=== PATIENT | male | born 1965 | race Caucasian/White ===

== ENCOUNTER 2017-12-08 14:00 | Outpatient (RCR) | payer OTHER, MEDICAID, SELFPAY ==
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
--- NOTE | 2017-07-29 15:52 | HP.SP.AD_ITS ---
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 He is not left alone at home at anytime. SCATBI - SCATBI SCATBI Administered: Yes SCATBI: The Scales of Cognitive Ability for Traumatic Brain Injury tests cognitive abilities in five subtests: perception and discrimination, orientation , organization, recall and reasoning. The lower functioning composite score is the sum of the standard scores for perception and discrimination, orientation and organization, and the higher functioning composite is the sum of the standard scores for recall and reasoning. The SCATBI total score is the sum of all five standard scores. The standard score is a mean of 100 with a standard deviation of 15. A score of 85 or better is considered within normal limits. Date: 07/29/17 - Organization Standard Score: 85 - SCATBI Comments Evaluation Peter was able to complete tasks for identifying pictured categories and category members as well as sequence objects by He did not complete word associations ( identify which one does not belong in a group fo 4). He did not sequence words, events per time of year or sequence events through pictures. When asked to give steps to complete a task he listed basic steps but not enough information to complete the task. Futher evaluation is needed for cognitive skills and completion of SCTABI is recommended. Other Impressions - Comments Additional information -: Peter often repeated the same information/statement through the evaluation. 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 He often answered questions in accurately while his provided correct information. ( example - do you do your own medication, he stated yes and his gives him his daily doses of medications. She reported that he does not independently complete medication management. Initation -: Peter rarely initates tasks per his . He does not recognize when he is hungry therefore does not eat routinely if someone does not give him food. He has only one time ( in the past 2 weeks) went and got his own snack after a nap. He will follow directions and is able to complete dressing and bathing tasks but only when told to do so. Plan - Plan Plan: Speech therapy is warranted for signficant cognitive deficits which impacts his overall safety and ability to be left alone. - Recommendations Treatment Warranted: Yes - Frequency Frequency: 2x /Week Duration: 6 Weeks Visits in this POC: 12 - Prognosis Prognosis: Good - Goals that are Established: Determination:: Goals will be added/modified as deemed necessary and appropriate. Therapy will be discontinued when results of re-evaluation indicate therapy is no longer needed or lack of progress has been documented. - Goal #1-5 Goal #1: Completion of SCATBI. Goal #2: Evaluation of safety awareness, problem solving, reasoning, and judgement. Education - Patient has Indicated that the Following Identified Educational Needs: Cognitively Impaired - Patient Instruction Patient Education: Diagnosis, Treatment Plan, Goals, Safety Precautions Person Taught: Family Teaching Method: Discussion Response to teaching: Verbalize understanding
--- NOTE | 2017-08-05 11:02 | HP.PTREVAL_ITS ---
Out of Town Doctor, It has been my pleasure to treat JACOB LAMAS over the last 8 visits for TBI. Please see the progress note below for an update on the physical therapy plan of care! Subjective: rode 2.5 miles on bike at gym yesterday([employer]). Doing a 30 minute circuit at [employer] mostly UE ex. Has [employer] in basement at home. Objective/Function: 130 AROM B shpoulders. Steps up without UE, down with poor confidence and needs rail. FGA 3 poijnts better. Plan Plan: Continue 2x/week for 4 weeks for balance(functional, steps and foam). Do end range shoulder ROM also. Pt to do UE/LE and bike/TM work at [employer] with wifs help. 3x/week. OVERALL IMPROVONG SLWLY AND APPROP TO CONTINUE 2X/ WEEK IN CONJUCTION WITH EX AT GYM WITH HIS . Goals Goal 1:: 130 AROM B shoulders to help reach cabinets better. Goal Time Frame: 4-6 Weeks Goal Progress: Goal Met Goal 2:: FGA to show improved balance and minimize future risk. Goal Time Frame: 4-6 Weeks Goal Progress: Progressing Goal 3:: Up and down steps without railing to get to basement Goal Time Frame: 4-6 Weeks Goal Progress: Progressing Goal 4:: I with approp [employer] workout with help of his . Goal Time Frame: 4-6 Weeks Goal Progress: Goal Met Anticipated Interventions Patient/Client Instruction: Educate patient on: Condition, Plan of Care Comments: HEP progression. For the Purpose of:: To increase ROM, To improve ability of physical actions for home/community/work/leisure Therapeutic Exercise to Include: Strength training, Balance training, Flexibilty training, Gait and locomotor training, Passive ROM, Active ROM For the Purpose of:: To increase ROM, To improve ability of physical actions for home/community/work/leisure, To improve gait and locomotor functions Manual Therapy Techniques to Include: Mobilization Comment: g-h mobs For the Purpose of:: To increase ROM Please do not hesitate to contact me at [phone] by phone or Fax: if you have questions or concerns regarding this new plan of care! Sincerely, Michelet Cristobal, DARELLT, OC
--- NOTE | 2017-08-21 14:43 | HP.PTDCNRP_ITS ---
HP - Discharge Summary (1) - Patient Information JACOB LAMAS was seen in my office for initial evaluation on 07/07/17. The following Plan of Care was established for this patient: Initial Frequency: 2x /Week Initial Duration: 2 Months - Anticipated Interventions Patient/Client Instruction: Educate patient on: Condition, Plan of Care Comments: HEP progression. For the Purpose of:: To increase ROM, To improve ability of physical actions for home/community/work/leisure Therapeutic Exercise to Include: Strength training, Balance training, Flexibilty training, Gait and locomotor training, Passive ROM, Active ROM For the Purpose of:: To increase ROM, To improve ability of physical actions for home/community/work/leisure, To improve gait and locomotor functions Manual Therapy Techniques to Include: Mobilization Comment: g-h mobs For the Purpose of:: To increase ROM This patient was last seen in our office 08/05/17. Pertinent comments regarding their Physical therapy will appear below: Pt seen 8 visits. More visits requested but denied by insurance. Patient to continue via HEP at [employer]. Will discontinue at this time. At this point I will be discontinuing this patient from physical therapy. I would be happy to see this patient again in the future if found appropriate by the physician. Thank you! Michelet Cristobal, DPT, OC
--- NOTE | 2017-10-01 10:56 | OTREVAL_ITS ---
Out of Town Doctor, It has been my pleasure to treat JACOB LAMAS over the last 7 visits for TBI. Please see the progress note below for an update on the occupational therapy plan of care! Subjective: Arrived stating he was exhausted from going to gym. No pain Objective/Function: when working with problem solving tasks as putting a clock together pt did not think the short hand needed to be on the clock-. pt cont. is to be cont. with UB strengthening but cont. to struggle with remembering the ex. pt cont. to demo poor endurance and fatigue with PT and when attending OT services pt struggles with focus. pt would benefit from cont. OT services to cont. to challenge functional strength and endurance and motor planning tasks. Would rec'd cont OT services 1-2xweek for 3-4 weeks Plan Frequency: 2-3x /Week Duration: 6 Weeks Plan: Visual motor activities Goals - Goals Goal:: pt will demo a increase in left gyroscope technician strength to 45# to increase ind with BADLs and IADLs Goal:: pt will demo increase FM coordination/dexterity to type on computer ind. by d/c Goal:: family will report pt is perform laundry tasks at sup. level by d/c. pt will demo the ability to fold towel ind to increase ind with BADls Goal:: Pt will demo the ability to safely problem solve 3 step task with 2 verbal cues by D/C. Anticipated Interventions Anticipated Interventions: Fine Motor Coord/Gilberto, Neuro Reeducation, ADL Training Please do not hesitate to contact me at [phone] by phone or Fax: if you have questions or concerns regarding this new plan of care! Sincerely, Yari Melendez, OTR/L, CHT
--- NOTE | 2017-10-02 11:39 | HP.SP.ADRE ---
Previous/Current Goals - Goals 1-5 Previous Goal #1: Peter will complete problem solving tasks on 4/5 trials. Goal 1 Status: Previously, Peter had limited problem solving for all tasks, on average . Currently, Sequencing 4 steps - 50%. Typically he switched two steps. Problem solving was partial today. He had imcomplete answers to nearly every question. accuracy was less than 25% due to incomplete answers. Peter was unable to identify a problem given a situation (accuracy 0/3 in multiple choice), Finding solutions 0/3 also. Previous Goal #2: Peter will complete safety awareness, reasoning, and judgement tasks on 4/5 trials. Goal 2 Status: Previously, [place] category members: 90%, wrong member category identification: 80% verbalization of why it is in the wrong category: 60% simple deduction: 50% Stating logical conclusions: 65%, his answers were often incomplete rather than completely off. Patient was unable to match a proverb to a situation as he remains very literal in thinkin% Listing category members: 37% naming objects by atributes: 80%, interpreting literal vs abstract meanings - Accuracy was 40%. Often takes things literally. Peter has increased his ability to determine categories or exclusions. Peter continues to need cues to give complete answers. 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 He is not left alone at home at anytime. CLQT - CLQT CLQT Administered: Yes CLQT: Cognitive Linguistic Quick Test (CLQT) is a criterion - referenced assessment designed for adults between the ages of 18 and 89 with known or suspected neurological dysfuntions. The CLQT is to assess strength and weaknesses in five cognitive domains. Severity ratings are within normal limits, mild, moderate, severe deficits. The subtests are as follows: Date: 10/02/17 - Attention Attention: WNL - Memory Memory: Mild - Executive Functions Executive Functions: Moderate - Language Language: WNL - Visuospatial Skills Visuospatial Skills: Mild - CLQT Comments Analysis Peter is now able to attend to tasks for longer periods of time without being easy distracted. His areas of need remain symbol trails, mazes, and design deneration. These skills focus on planning, reasoning and executive function areas. CLQT Re-Eval - Testing Results CLQT Test Comparison: Previous ratings: Attention - severe, Memory - Moderate, Executive functions - severe, Language -mild, Visuospatial skills - severe. Marked progress noted on all areas. SCATBI - SCATBI SCATBI Administered: Yes SCATBI: The Scales of Cognitive Ability for Traumatic Brain Injury tests cognitive abilities in five subtests: perception and discrimination, orientation, organization, recall and reasoning. The lower functioning composite score is the sum of the standard scores for perception and discrimination, orientation and organization, and the higher functioning composite is the sum of the standard scores for recall and reasoning. The SCATBI total score is the sum of all five standard scores. The standard score is a mean of 100 with a standard deviation of 15. A score of 85 or better is considered within normal limits. Date: 10/02/17 - Orientation Standard Score: 84 - Organization Standard Score: 83 - Recall Standard Score: 86 - Reasoning Standard Score: 86 - COMPOSITE SCORES: Higher Functioning Standard Score: 86 - SCATBI Comments Evaluation Noted increased reasoning skills noted for this test. Patient is very literal in thinking. SCATBI Re-Eval - Testing Results SCATBI Test Comparison: Previous scores: Orientation - 86, Organization 85, REcall 93, REason 85. Higher functioning 89. Other Impressions - Comments Additional information -: Peter often repeated the same information/statement through the evaluation. 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 He often answered questions in accurately while his provided correct information. ( example - do you do your own medication, he stated yes and his gives him his daily doses of medications. She reported that he does not independently complete medication management. Initation -: Peter rarely initates tasks per his . He does not recognize when he is hungry therefore does not eat routinely if someone does not give him food. He has only one time ( in the past 2 weeks) went and got his own snack after a nap. He will follow directions and is able to complete dressing and bathing tasks but only when told to do so. Plan - Plan Plan: Speech therapy is warranted to continue to focus on deficits in executive functions such as reasoning and - Recommendations Treatment Warranted: Yes - Frequency Visits in this POC: 24 - Prognosis Prognosis: Good - Goals that are Established: Determination:: Goals will be added/modified as deemed necessary and appropriate. Therapy will be discontinued when results of re-evaluation indicate therapy is no longer needed or lack of progress has been documented. - Goal #1-5 Goal #1: Peter will complete problem solving including deductions and home tasks on 4/5 trials. Goal #2: ePter will complete safety awareness, reasoning, and judgement tasks on 4/5 trials.
--- NOTE | 2017-10-02 11:54 | HP.SP.ADRE_ITS ---
Previous/Current Goals - Goals 1-5 Previous Goal #1: Peter will complete problem solving tasks on 4/5 trials. Goal 1 Status: Previously, Peter had limited problem solving for all tasks, on average . Currently, Sequencing 4 steps - 50%. Typically he switched two steps. Problem solving was partial today. He had imcomplete answers to nearly every question. accuracy was less than 25% due to incomplete answers. Peter was unable to identify a problem given a situation (accuracy 0/3 in multiple choice) , Finding solutions 0/3 also. Previous Goal #2: Peter will complete safety awareness, reasoning, and judgement tasks on 4/5 trials. Goal 2 Status: Previously, Poyntelle category members: 90%, wrong member category identification: 80% verbalization of why it is in the wrong category: 60% simple deduction: 50% Stating logical conclusions: 65%, his answers were often incomplete rather than completely off. Patient was unable to match a proverb to a situation as he remains very literal in thinkin% Listing category members: 37% naming objects by atributes: 80%, interpreting literal vs abstract meanings - Accuracy was 40%. Often takes things literally. Peter has increased his ability to determine categories or exclusions. Peter continues to need cues to give complete answers. 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 He is not left alone at home at anytime. CLQT - CLQT CLQT Administered: Yes CLQT: Cognitive Linguistic Quick Test (CLQT) is a criterion - referenced assessment designed for adults between the ages of 18 and 89 with known or suspected neurological dysfuntions. The CLQT is to assess strength and weaknesses in five cognitive domains. Severity ratings are within normal limits , mild, moderate, severe deficits. The subtests are as follows: Date: 10/02/17 - Attention Attention: WNL - Memory Memory: Mild - Executive Functions Executive Functions: Moderate - Language Language: WNL - Visuospatial Skills Visuospatial Skills: Mild - CLQT Comments Analysis Peter is now able to attend to tasks for longer periods of time without being easy distracted. His areas of need remain symbol trails, mazes, and design deneration. These skills focus on planning, reasoning and executive function areas. CLQT Re-Eval - Testing Results CLQT Test Comparison: Previous ratings: Attention - severe, Memory - Moderate, Executive functions - severe, Language -mild, Visuospatial skills - severe. Marked progress noted on all areas. SCATBI - SCATBI SCATBI Administered: Yes SCATBI: The Scales of Cognitive Ability for Traumatic Brain Injury tests cognitive abilities in five subtests: perception and discrimination, orientation , organization, recall and reasoning. The lower functioning composite score is the sum of the standard scores for perception and discrimination, orientation and organization, and the higher functioning composite is the sum of the standard scores for recall and reasoning. The SCATBI total score is the sum of all five standard scores. The standard score is a mean of 100 with a standard deviation of 15. A score of 85 or better is considered within normal limits. Date: 10/02/17 - Orientation Standard Score: 84 - Organization Standard Score: 83 - Recall Standard Score: 86 - Reasoning Standard Score: 86 - COMPOSITE SCORES: Higher Functioning Standard Score: 86 - SCATBI Comments Evaluation Noted increased reasoning skills noted for this test. Patient is very literal in thinking. SCATBI Re-Eval - Testing Results SCATBI Test Comparison: Previous scores: Orientation - 86, Organization 85, REcall 93, REason 85. Higher functioning 89. Other Impressions - Comments Additional information -: Peter often repeated the same information/statement through the evaluation. 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 He often answered questions in accurately while his provided correct information. ( example - do you do your own medication, he stated yes and his gives him his daily doses of medications. She reported that he does not independently complete medication management. Initation -: Peter rarely initates tasks per his . He does not recognize when he is hungry therefore does not eat routinely if someone does not give him food. He has only one time ( in the past 2 weeks) went and got his own snack after a nap. He will follow directions and is able to complete dressing and bathing tasks but only when told to do so. Plan - Plan Plan: Speech therapy is warranted to continue to focus on deficits in executive functions such as reasoning and - Recommendations Treatment Warranted: Yes - Frequency Visits in this POC: 24 - Prognosis Prognosis: Good - Goals that are Established: Determination:: Goals will be added/modified as deemed necessary and appropriate. Therapy will be discontinued when results of re-evaluation indicate therapy is no longer needed or lack of progress has been documented. - Goal #1-5 Goal #1: Peter will complete problem solving including deductions and home tasks on 4/5 trials. Goal #2: Peter will complete safety awareness, reasoning, and judgement tasks on 4/5 trials. Goal #3: Peter will use a calendar to organize his daily events on 4/5 trials on 4 consecutive sessions.
--- NOTE | 2017-11-27 15:40 | HP.OTDCSUM ---
HP - OT D/C Summary It has been my pleasure to treat JACOB LAMAS under orders from Out of Town Doctor, for the diagnosis of TBI for a total of 15 visit(s). Please see the following information for a summary of their discharge status. - Objective Objective/Function: right mechanical manager strength 70# increase from 45# left mechanical manager strength 40# initial was 20# Right lateral pinch 14# initial 10# left lateral pinch right 12# left 8# right tripod pinch 15# initial 8# left tripod 6# initial 2#. Right 9-hole peg 29.14 initial 30.74. left 9-hole peg 31.91 initial 43.83. pt has made good progress and is involved in the [employer] every other day. - Goals Patient Goals: Regain Strength, Use Hand/Wrist/Arm Normally Again, Resume Former Household Responsibilities (Cooking,Cleaning,Yard, etc.) Goal:: pt will demo a increase in left mechanical manager strength to 45# to increase ind with BADLs and IADLs Goal:: pt will demo increase FM coordination/dexterity to type on computer ind. by d/c Goal:: family will report pt is perform laundry tasks at sup. level by d/c. pt will demo the ability to fold towel ind to increase ind with BADls Goal:: Pt will demo the ability to safely problem solve 3 step task with 2 verbal cues by D/C. - Plan Plan: D/C with HEP. gave pts sister information on Adult day care center in [place] for extra resource. - D/C Information Discharge Comments: Pt was seen for 15 visits that challenged pts strength and FMS. pt has met functional goals in therapy- Pt to cont. with HEP. Pt D/C at this time. If there are questions or concerns regarding this patient's occupational therapy, please fell free to call me at [phone]. Thank you for the referral of this patient. Sincerely, Yari Melendez, OTR/L, CHT
== END 2017-12-08 19:00 | disposition home or self-care (01) ==
LOC: SP 14:00
PROVIDERS: Family Provider Family Medicine; PCP Family Medicine
DX: Z87.820 Personal history of traumatic brain injury (principal)
CPT/HCPCS: 92507; 92523; 97110; 97163; 97166; 97530

== ENCOUNTER 2018-06-22 14:30 | Outpatient (RCR) | payer OTHER, MEDICAID, SELFPAY ==
--- NOTE | 2018-03-16 13:30 | DT_ITS ---
This patient was seen during an EMR downtime March 16, 2018 - March 23, 2018. This patient may have a combination of paper and electronic documentation or all paper documentation. All documentation is viewable within the e-chart portion of [facility] for each patient visit.
--- NOTE | 2018-04-21 12:37 | HP.SP.ADRE ---
Previous/Current Goals - Goals 1-5 Previous Goal #1: Cade will complete problem solving including deductions and home tasks on 4/5 trials. Goal 1 Status: Cade is able to complete simple deduction tasks if given extra time and moderate cues. He can problem solve simple tasks verbally in therapy, however, at home his reported that he can't do simple problem sovling ( example - cutting his toe and not being able to put a bandaid on it to stop the bleeding) He lacks carry over into daily tasks. OVerall his accuracy for problem solving simple problems verbally is 80% complex is significantly less accurate. Previous Goal #2: Cade will complete safety awareness, reasoning, and judgement tasks on 4/5 trials. Goal 2 Status: Verbally, Cade is able to answer safety awareness questions regarding concrete tasks such as a tacker elastic band safety with good accuracy ( 80%). 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 Example: When asked what to do if someone falls and hits their head - he stated I won't kick her. He was unable to state calling 911. HE is not safe to be left alone at home at this time. Previous Goal #3: Cade will use a calendar to organize his daily events on 4/5 trials on 4 consecutive sessions. Goal 3 Status: This goal was at the patient's request. He brings his phone however, he is unable to put information into his phone for reminders. His has a calendar at home on the wall and he has medication reminder alarms in his phone. His has requested that no more information be placed on his phone as it may be confusing for him on which alarm is for which task. Goal will be discontinues. History - History Date of Eval: 07/28/17 Other Relevant Medical History/Diagnoses/Surgery: Patient had a grand mal seizure in late march 2018. Smoking Status: Former smoker Hx Smoking: Yes - remote Hx Tobacco Use: No - Pain Is pain an issue with your current prescribed condition?: No Patient Allergies - Allergies Allergies acetaminophen [From Percocet] Adverse Reaction (Verified 09/15/17 10:34) Other oxycodone [From Percocet] Adverse Reaction (Verified 09/15/17 10:34) Other Objective Cog/Ling/Com - Test Administered Izmhzrskh-Lzjjzgchgq-Mccvskizldhvj Assessment Administered: Yes Jcbcbform-Glvkstbdmu-Kebrybofwbwey Assessment: Cognitive Linguistic skills were evaluated using patient/family interview, skilled observation and informal evaluation through tasks completed by the patient. - Orientation Orientation: Person, Place, Birthdate, Medical Diagnosis - Answer Yes/No Questions Simple: WNL Complex: Moderate - Verbal Sequencing Verbal Sequencing: Mild - Problem Solving Simple: WFL Complex: Moderate - Judgement & Reasoning Judgement/Reasoning: Moderate - Cognitive Linguistic Supervision/Saftey Awareness of deficits: Severe Being left home alone: Severe Managing medications: Severe Managing finances: Severe Cognitive Linguistic Comments - Comments Comments Cade remains very literal and majority of comments are taken very literally. He is unable to determine if someone is joking, determining mean of anaologies,idioms, etc. He is unable to determine what to do for daily tasks. He lacks insight into his deficits as he states that he has no problems thinking. Cade has a difficult time in conversation as he doesn't initate conversation or know how to continue a conversation. CLQT - CLQT CLQT Administered: Yes CLQT: Cognitive Linguistic Quick Test (CLQT) is a criterion - referenced assessment designed for adults between the ages of 18 and 89 with known or suspected neurological dysfuntions. The CLQT is to assess strength and weaknesses in five cognitive domains. Severity ratings are within normal limits, mild, moderate, severe deficits. The subtests are as follows: Date: 04/21/18 - Attention Attention: WNL - Memory Memory: Mild - Executive Functions Executive Functions: Moderate - Language Language: WNL - Visuospatial Skills Visuospatial Skills: Mild - Composite Severity Rating Composite Severity Rating: Mild - CLQT Comments Comments Cade remains very literal and majority of comments are taken very literally. He is unable to determine if someone is joking, determining mean of CLQT Re-Eval - Testing Results CLQT Test Comparison: Previous severity ranges: Attention mild( improved), Memory moderate( improved), executive functions mild(decreased), language WNL (improved), visuospatial skills mild (same) Overall composite score increaed from 2.8 to 3.2 (stayed in the mild range) Plan - Recommendations Treatment Warranted: Yes - Frequency Frequency: 1x/Week Visits in this POC: 12 weeks - Prognosis Prognosis: Good - Goals that are Established: Determination:: Goals will be added/modified as deemed necessary and appropriate. Therapy will be discontinued when results of re-evaluation indicate therapy is no longer needed or lack of progress has been documented. - Goal #1-5 Goal #1: Cade will identify appropriate actions to situations of safety for self and others on 4/5 trials on 4 consecutive sessions. Goal #2: Cade will continue a conversation for 3-5 comments, questions or statements on 4/5 trials on 4 consecutive sessions. Goal #3: Cade will identify mean of non literal language including but not limited to idioms, metaphors, inferences and exaggeration on 4/5 trials on 4 consecutive sessions.
== END 2018-06-22 19:00 | disposition home or self-care (01) ==
LOC: SP 14:30
PROVIDERS: Family Provider Family Medicine; PCP Family Medicine
DX: R41.841 Cognitive communication deficit (principal)
CPT/HCPCS: 92507

== ENCOUNTER 2018-08-10 18:42 | Emergency (ER) | payer OTHER, MEDICAID, SELFPAY ==
[2018-08-10 18:44] VITALS: BP 165/85; PULSE 54; RESP 20; TEMP 36.3; O2SAT 97; BMI 42.3
--- NOTE | 2018-08-10 19:13 | US_ITS ---
STUDY: VENOUS DOPPLER ULTRASOUND - LEFT LOWER EXTREMITY REASON FOR EXAM: Male, 53 years old. Swelling TECHNIQUE: Ultrasound evaluation of the deep vein system to include carter-scale imaging and compression was performed. Carter-scale imaging and Doppler sonographic evaluation, including duplex spectral analysis and qualitative color flow sonography, was performed. COMPARISON: None. FINDINGS: Common Femoral Vein: Normal compression, spontaneity and augmentation. Normal color Doppler. Common Femoral Vein/Greater Saphenous Junction: Normal compression, spontaneity and augmentation. Normal color Doppler. Deep Femoral Vein: Normal compression, spontaneity and augmentation. Normal color Doppler. Femoral Proximal: Normal compression, spontaneity and augmentation. Normal color Doppler. Femoral Middle: Normal compression, spontaneity and augmentation. Normal color Doppler. Femoral Distal: Normal compression, spontaneity and augmentation. Normal color Doppler. Popliteal Vein: Normal compression, spontaneity and augmentation. Normal color Doppler. Posterior Tibial Vein: Normal compression, spontaneity and augmentation. Normal color Doppler. Peroneal Vein: Normal compression, spontaneity and augmentation. Normal color Doppler. US/Venous Duplex Imag/Limited/Uni IMPRESSION: Normal venous Doppler ultrasound of the lower extremity. Electronically Signed: Yeyo Shelley MD at 19:46 EDT , Service support ,
--- NOTE | 2018-08-10 20:19 | ED.DCSUM_ITS ---
- ER Visit Summary Date of Service: 08/10/18 Chief Complaint: Cough and leg swelling History of Present Illness: The patient is a 53 M presenting for evaluation secondary to cough and leg swelling. First off patient has been dealing with some respiratory symptoms over the course last 3-4 days. This been associated with a nonproductive cough and nasal congestion. No sore throat or significant rhinorrhea. There have been some subjective fevers associated with this. Patient has a history of getting frequent pneumonia in the past. He also has a history of DVT, and his is concerned because he has some asymmetric left leg swelling due to him being sedentary recently. Patient has not been having any sort of chest pain or hemoptysis. Review of systems otherwise negative. Physical Examination: Vital signs are within normal limits, patient is afebrile. General: Patient is well-nourished well-developed and in no acute distress. Head: Normocephalic, atraumatic Eyes: Pupils equal round and reactive bilaterally, extra occular motion intact bialterally ENT: Moist mucous membranes, and swollen nasal turbinates are noted Neck: Supple, no lymphadenopathy, no JVD, no meningismus CVS: Heart regular rate and rhythm, no murmurs, rubs or gallops, radial pulses 2+ bilaterally Resp: Respirations nondistressed, lung sounds clear bilaterally Abdomen: Soft, nontender, nondistended, no palpable masses, normal bowel sounds Back: Nontender Extremities: Nontender, atraumatic, active full range of motion, +1 left leg peripheral edema Skin: warm, no rashes, no petechia Neuro: Alert and oriented x 4, CN 2-12 intact, no lateralizing neurological defecits Psyc: Normal affect Test Results: Duplex ultrasound of the left leg found to be negative Emergency Department Course and Treatment: Patient presented for evaluation secondary to respiratory illness. Patient has normal vital signs, and his lungs actually sound okay but given his underlying illnesses and propensity for getting pneumonia I will empirically treat the patient with a course of doxycycline. His duplex ultrasound was negative, family was informed of this and was comforted. Patient was discharged. Disposition: Discharge Impression: 1. Bronchitis This note was generated with [employer] dictation software. It may contain incorrect words, spelling, and punctuation that were not noted in review of the chart prior to signing ED Disposition - Plan for ED Patient: Disposition: Home or Assisted Living Chief Complaint: Cold Sx Diagnosis: Bronchitis Instructions: ED Bronchitis Asthmatic Prescriptions: Doxycycline Monohydrate 100 mg PO BID #20 cap Referrals: Tate Broderick MD [Primary Care Provider] - 5-7 Days
[2018-08-10] MEDS: Doxycycline 100 MG CAPSULE PO (20:23)
[2018-08-10 20:26] VITALS: BP 117/73; PULSE 54; RESP 16; O2SAT 97
--- NOTE | 2018-08-10 20:26 | ED.RN ---
REVIEWED D/C INSTRUCTIONS, FOLLOW UP CARE, PRESCRIPTION, AND S/S THAT WOULD WARRANT A RETURN TO THE ED WITH PT. PT VERBALIZED AN UNDERSTANDING AND DENY FURTHER QUESTIONS FOR THIS RN. PT SKIN P/W/D, RESP EVEN AND UNLABORED, PT A&O X 3, NO DISTRESS NOTED. PT AMBULATED OUT OF ED, GAIT STEADY.
== END 2018-08-10 20:27 | disposition home or self-care (01) ==
PROVIDERS: Emergency Provider Emergency Medicine; Family Provider Family Medicine; PCP Family Medicine
DX: J40 Bronchitis, not specified as acute or chronic (principal); M79.89 Other specified soft tissue disorders; G47.33 Obstructive sleep apnea (adult) (pediatric); R56.9 Unspecified convulsions; Z86.718 Personal history of other venous thrombosis and embolism; Z87.820 Personal history of traumatic brain injury; Z79.82 Long term (current) use of aspirin; Z79.899 Other long term (current) drug therapy
CPT/HCPCS: 93971; 99283

== ENCOUNTER 2018-09-02 15:33 | Emergency (ER) | payer MEDICAID, OTHER, SELFPAY ==
[2018-09-02 15:34] VITALS: BP 161/90; PULSE 60; RESP 15; TEMP 36.7; O2SAT 97; BMI 35.4
--- NOTE | 2018-09-02 15:48 | EKG12_ITS ---
Test Reason : DYSRHYTHMIA Blood Pressure : / mmHG Vent. Rate : 061 BPM Atrial Rate : 061 BPM P-R Int : 174 ms QRS Dur : 084 ms QT Int : 390 ms P-R-T Axes : 049 050 091 degrees QTc Int : 392 ms Normal sinus rhythm Nonspecific ST and T wave abnormality Abnormal ECG Confirmed by STEFF MELENDEZ, OLAMIDE ([id number]), electronic news gathering editor SIRENA FINE ([id number]) on 09/04/2018 12:03:58 PM Referred By: AGNIESZKA MENDEZ Confirmed By:OLAMIDE ARTIS MD
--- NOTE | 2018-09-02 15:48 | CT_ITS ---
STUDY: CT BRAIN WITHOUT CONTRAST REASON FOR EXAM: Male, 53 years old. Confusion. History of traumatic brain injury. RADIATION DOSAGE (If Supplied By Facility): CTDIvol = ( 44.99 ) mGy, DLP = ( 812.98 ) mGycm TECHNIQUE: Transaxial CT imaging of the brain was performed without administration of intravenous contrast material. Individualized dose optimization techniques were used for this CT. COMPARISON: 09/15/2017. FINDINGS: Normal soft tissue structures. The patient is status post left parietal craniotomy. Old healed temporal and left sphenoid fractures are noted. Patient is status post embolization procedure on the right. There is moderate cerebral atrophy with widening of the extra-axial spaces and ventricular dilatation. There are areas of decreased attenuation within the white matter tracts of the supratentorial brain, consistent with microvascular disease changes. Normal basal ganglia and thalami. Normal brainstem. Normal cerebellum. There is no intracranial hemorrhage. There are no findings of an acute territorial infarct. There is a chronic right temporal infarct. There is a small chronic left temporal infarct. Bilateral chronic frontal infarcts are noted, greater on the left. There is a chronic right high frontal infarct. There is a small chronic left high frontal infarct. These are unchanged compared to the prior study. Normal visualized paranasal sinuses. CT/Brain/Head without Contrast IMPRESSION: 1. No acute process. 2. Multiple chronic infarcts, unchanged from 2017. 3. Microvascular ischemia and atrophy. 4. Prior left craniotomy and old healed fractures. Electronically Signed: Naomi Suero MD at 16:57 EST Tel , Service support ,
--- NOTE | 2018-09-02 15:48 | RAD_ITS ---
STUDY: X-RAY CHEST REASON FOR EXAM: Male, 53 years old. Cough, confusion. TECHNIQUE: Portable chest. COMPARISON: 03/04/2017. FINDINGS: The lungs are clear and expanded. There is no demonstrated pleural abnormality. Normal size heart. Normal mediastinum and omar. Normal visualized pulmonary arteries. Normal visualized aortic arch and descending thoracic aorta. Normal visualized thoracic spine. Normal visualized ribs, clavicles, and shoulders. There is no demonstrated abnormality of the visualized soft tissue structures of the upper abdomen. RAD/Chest 1 View (Portable) IMPRESSION: Normal x-ray examination of the chest. Electronically Signed: Naomi Suero MD at 16:08 EST Tel , Service support ,
--- NOTE | 2018-09-02 15:55 | ED.VISSUMM ---
- ER Visit Summary Date of Service: 09/02/18 Chief Complaint: Confusion History of Present Illness: The patient is a 53 M presenting with family for confusion. Family states this has been going on over the past 2 days. He has had intermittent episodes of confusion. He has told his family that he has been talking to his doctor on the phone and this is not accurate. They went to urgent care today were sent to the ED for further evaluation. He has had no recent trauma. He has a history of traumatic brain injury with history of intermittent confusion. He denies chest pain or shortness of breath. He has rhinorrhea and cough. He has had urinary frequency and denies dysuria. Denies nausea, vomiting, diarrhea. Denies other complaints. Physical Examination: Vitals are stable. Patient is afebrile. Alert no acute distress. HEENT exam is unremarkable. Pharynx is normal Neck is supple. No meningismus. Lungs are clear and equal bilaterally. Heart is regular rate and rhythm. Abdomen is soft nontender nondistended. Extremities are unremarkable. Skin is warm and dry. No focal neurologic deficit. Alert and oriented x3 Remainder of exam is unremarkable. Emergency Department Course and Treatment: EKG is sinus rate of 61 with no acute ischemic changes. CBC, chemistries unremarkable. Troponin is negative. Lactic acid is normal. Ammonia is normal. Urinalysis unremarkable. Chest x-ray shows no acute process. CT head shows no acute process. On reevaluation patient is resting comfortably. is at bedside. Patient is at his baseline. She is comfortable with discharge home. Patient has 24-hour care at home. He would like to go home. Family is agreeable. Advised to follow-up with primary care physician. Advised return to ED if worsening complaints. Disposition: Discharge home Impression: Intermittent confusion, history of TBI This note was generated with [employer] dictation software. It may contain incorrect words, spelling, and punctuation that were not noted in review of the chart prior to signing ED Disposition - Plan for ED Patient: Chief Complaint: Confusion Instructions: ED Confusion Referrals: Tate Broderick MD [Primary Care Provider] -
[2018-09-02 16:32] LABS: Absolute Lymphocyte Count 1.71 X10^3/ul (0.83-4.51); Absolute Neutrophil Count 2.8 X10^3/uL (2.0-7.7); Basophil# 0.04 X10^3/uL; Basophil% 0.8 % (0-1); Eosinophil# 0.24 X10^3/uL; Eosinophils% 4.6 % (0-5); Hematocrit 44.4 % (40-54); Hemoglobin 14.9 g/dl (13.0-16.5); Lymphocyte # 1.71 X10^3/ul (4.0); Lymphocyte % 32.4 % (19-41); Mean Corp Hgb Conc 33.6 g/gl (32-36); Mean Corpuscular Hgb 31.6 pg (27.0-32.0); Mean Corpuscular Volume 94.3 fL (80-94); Mean Platelet Vol. 10.7 fl (6.2-12.0); Monocyte# 0.47 X10^3/uL; Monocyte% 8.9 % (0-10); Neutrophil % 53.1 % (47-70); Platelet Count 235 K/mm3 (150-450); RBC Distribution Width CV 13.1 % (11.6-14.6); RBC Distribution Width SD 43.9 fl (35.1-43.9); Red Blood Count 4.71 M/mm3 (4.6-6.2); White Blood Count 5.3 K/mm3 (4.4-11.0)
[2018-09-02 16:33] LABS: POSITIVE COUNT NO; POSITIVE DIFFERENTIAL NO; POSITIVE MORPHOLOGY NO
[2018-09-02 16:48] LABS: ALB/GLOB Ratio 1.2 RATIO (0.9-2.4); AST(SGOT) 26 U/L (15-37); Alanine Aminotransfer ALT/SGPT 52 U/L (16-61); Albumin, Serum 3.9 g/dL (3.2-5.0); Alkaline Phosphatase 126 U/L (45-117); Anion Gap 6 (5-15); BUN 17 mg/dL (7-18); BUN/Creat Ratio 15.7 RATIO (10-20); Calcium,Total 8.9 mg/dL (8.5-10.1); Chloride 108 mmol/L (98-107); Creatinine, Serum 1.08 mg/dL (0.70-1.30); EST Glomerular Filtration Rate 76 mL/min (>60); Est Glom Filt Rate - Afr Amer 92 mL/min (>60); Globulin 3.2 g/dL (2.2-4.2); Glucose 96 mg/dL (74-106); Protein, Total 7.1 g/dL (6.4-8.2); Sodium Level 141 mmol/L (136-145)
[2018-09-02 16:56] LABS: Lactic Acid 1.4 mmol/L (0.4-2.0)
[2018-09-02 17:39] LABS: Bacteria 0 SEEN /hpf (None Seen); Mucous, Urine 0 SEEN /hpf (<or=2+); Red Blood Cells-Urine 0 SEEN /hpf (0-5); Squamous Epithelial Cells - UA 0 SEEN /hpf (0-5); White Blood Cells 0 SEEN /hpf (0-5)
[2018-09-02 17:41] LABS: Color, Urine Yellow (Yellow); Glucose, Dipstick Normal (Normal); Ketone-Dipstick Negative (Negative); Leukocyte Esterase-Dipstick Negative /ul (Negative); Nitrite-Dipstick Negative (Negative); Occult Blood-Urine 10 /ul (Negative); Protein-Dipstick Negative (Negative); Urine Bilirubin Dipstick Negative (Negative); Urine Clarity Clear (Clear); Urine Urobilinogen Normal (Normal)
--- NOTE | 2018-09-02 18:00 | ED.DEP ---
ED Disposition - Plan for ED Patient: Chief Complaint: Confusion Instructions: ED Confusion Referrals: Tate Broderick MD [Primary Care Provider] -
[2018-09-02 18:18] VITALS: BP 127/80; PULSE 51; RESP 16; O2SAT 96
== END 2018-09-02 18:19 | disposition home or self-care (01) ==
PROVIDERS: Emergency Provider Emergency Medicine; Family Provider Family Medicine; PCP Family Medicine
DX: R41.0 Disorientation, unspecified (principal); Z87.820 Personal history of traumatic brain injury; Z87.891 Personal history of nicotine dependence
CPT/HCPCS: 70450; 71045; 80053; 81001; 82140; 83605; 84484; 85025; 93005; 96360; 96361; 99284; J7030; J7040; A4216

== ENCOUNTER 2019-01-06 13:30 | Outpatient (RCR) | payer OTHER, MEDICAID, SELFPAY ==
--- NOTE | 2018-07-29 13:23 | HP.SP.ADRE_ITS ---
Previous/Current Goals - Goals 1-5 Previous Goal #1: Cade will identify appropriate actions to situations of safety for self and others on 4/5 trials on 4 consecutive sessions. Goal 1 Status: Cade can identify appropriate actions for safety situations but his reported that he does not always do the right decision at home. Previous Goal #2: Cade will continue a conversation for 3-5 comments, questions or statements on 4/5 trials on 4 consecutive sessions. Goal 2 Status: Cade was able to only do one turn/question for listeners topic but up to 8 turns during his topic. Previously he was not able to complete turn taking for asking questions or inquiring about his listener. He did not comment to continue conversation. He is able to continue a coversation now but not able to ask questions. He always turns the topic to himself or his views. Previous Goal #3: Cade will identify mean of non literal language including but not limited to idioms, metaphors, inferences and exaggeration on 4/5 trials on 4 consecutive sessions. Goal 3 Status: Previously: Deciding how others would feel in a situation: 50%, Cade often read more into the situations than what was presented. It was diff icult for him to answer only what was provided information and determine the feelings. Currently 60% for idioms, common phrases and metaphors. He continues to often say the same thing for how people feel - example- worried or excited rather than more feelings. History - History Date of Eval: 07/29/17 Medical Diagnosis (from RX): TBI Date of Onset of Diagnosis: 06/23/16 Previous speech therapy: Yes Results: Cade has been in speech therapy approximately one year. Smoking Status: Former smoker Hx Smoking: Yes - remote Hx Tobacco Use: No - Pain Is pain an issue with your current prescribed condition?: No Patient Allergies - Allergies Allergies acetaminophen [From Percocet] Adverse Reaction (Verified 09/15/17 10:34) Other oxycodone [From Percocet] Adverse Reaction (Verified 09/15/17 10:34) Other SCATBI - SCATBI SCATBI Administered: Yes SCATBI: The Scales of Cognitive Ability for Traumatic Brain Injury tests cognitive abilities in five subtests: perception and discrimination, orientation, organization, recall and reasoning. The lower functioning composite score is the sum of the standard scores for perception and discrimination, orientation and organization, and the higher functioning composite is the sum of the standard scores for recall and reasoning. The SCATBI total score is the sum of all five standard scores. The standard score is a mean of 100 with a standard deviation of 15. A score of 85 or better is considered within normal limits. Date: 07/29/18 - Reasoning Standard Score: 89 - SCATBI Comments Further information Cade was able to tell opposites, understand absrudities, and explani homographs. He was not able to use deductive reasoning or explain idioms. He often had a difficult time in explaining his answers. He is progressing with reasoning skills but lacks social skills at this time. SCATBI Re-Eval - Testing Results SCATBI Test Comparison: Previously Cade's standard score was 86. Other Impressions - Comments Pragmatic Language -: Cade continues to progress with cognitive skills but social pragmatic skills are in deficit. He has gained social interaction for smiling and occasionally joking with those close to him and he is comfortable with. He still tends to dominate the conversation and often lacks the ability to continue a conversation without turning it to his opinion or his experience. Example: When discussing hobbies the Therapist made the statement I don't like fishing'. His repsonse was yes you do, I like fishing. When given cues he then stated therapist would like fishing if pt taught her about it. He lacks empathy when another person is upset and his reports that he tends to be very flat at home. Plan - Plan Plan: Speech therapy is recommended to continue for pragmatic language deficits as well as reasoning skills. - Recommendations Treatment Warranted: Yes - Frequency Frequency: 1x/Week Duration: 3 Months Visits in this POC: 12 - Prognosis Prognosis: Good - Goals that are Established: Determination:: Goals will be added/modified as deemed necessary and a ppropriate. Therapy will be discontinued when results of re-evaluation indicate therapy is no longer needed or lack of progress has been documented. - Goal #1-5 Goal #1: Cade will continue a conversation for 5-8 comments or statements on 4/5 trials on 3 consecutive sessions. Goal #2: Cade will identify mean of non literal language including but not limited to idioms, metaphors, inferences and exaggeration on 4/5 trials on 3 consecutive sessions. Goal #3: Cade will ask a question to find information about conversational partner in order to continue a conversation 3 times during a session across 3 consecutive sessions. Goal #4: Cade will identify emotions in a given situation on 3/5 trials on 3 consecutive sessions.
--- NOTE | 2018-11-10 14:53 | HP.SP.ADRE ---
Previous/Current Goals - Goals 1-5 Previous Goal #1: Cade will continue a conversation for 5-8 comments or statements on 4/5 trials on 3 consecutive sessions. Goal 1 Status: Previously, Cade was able to continue a conversation for 3-5 comments. Currently, he is 90% with 5-8 comments/statements and often can hold a conversation for 30 minutes if it is a topic of familiarity to him. Previous Goal #2: Cade will identify meaning of non literal language including but not limited to idioms, metaphors, inferences and exaggeration on 4/5 trials on 3 consecutive sessions. Goal 2 Status: Previously: Cade was able to explain idioms with 60% acccuracy. Currently, His acttuacy for idioms ranges from 50% to 75% with minimal cues. Previous Goal #3: Cade will ask a question to find information about conversational partner in order to continue a conversation 3 times during a session across 3 consecutive sessions. Goal 3 Status: Previously, Cade used only statements or comments. Currently this ranges from 0-2 questions asked with maximal cues. Previous Goal #4: Cade will identify emotions in a given situation on 3/5 trials on 3 consecutive sessions. Goal 4 Status: Previously, Cade needed maximal cues for all emotions. Currently he is able to identify emotions by expressing an emotion with a good variety of words such as excited, awesome, happy, and frustrated. History - History Date of Eval: 07/28/17 Medical Diagnosis (from RX): Cognitive deficits. Date of Onset of Diagnosis: 06/23/16 Previous speech therapy: Yes Results: Cade has been in speech therapy approximately one year. Smoking Status: Former smoker Hx Smoking: Yes - remote Hx Tobacco Use: No - Pain Is pain an issue with your current prescribed condition?: No Patient Allergies - Allergies Allergies acetaminophen [From Percocet] Adverse Reaction (Verified 09/22/18 16:24) Other oxycodone [From Percocet] Adverse Reaction (Verified 09/22/18 16:24) Other CLQT - CLQT CLQT Administered: Yes CLQT: Cognitive Linguistic Quick Test (CLQT) is a criterion - referenced assessment designed for adults between the ages of 18 and 89 with known or suspected neurological dysfuntions. The CLQT is to assess strength and weaknesses in five cognitive domains. Severity ratings are within normal limits, mild, moderate, severe deficits. The subtests are as follows: Date: 11/10/18 - Attention Attention: WNL - Memory Memory: Moderate - Executive Functions Executive Functions: WNL - Language Language: WNL - Visuospatial Skills Visuospatial Skills: WNL - Composite Severity Rating Composite Severity Rating: WNL - CLQT Comments Comments Cade has made wonderful progress overall in the last year. He is able to attend to tasks much better which overall increased his scores. He is able to plan items and think steps through more throughly. He is able to follow more directions during testing at this time. Deficits Cade continues to have deficits in pragmatic language abilities. He lacks the ability to ask questions of his listener and his conversation are very self centered. He is able to identify emotions but then lacks the ability to take the next appropriate step. Example: He understands his may be upset but lacks the ability to comfort her. He also lacks initiation of tasks. CLQT Re-Eval - Testing Results CLQT Test Comparison: Previously scores are as follows: Attention Mild, Memory Moderate, Executive functions moderate, Language mild, Visuospatial skills mild. Plan - Plan Plan: Speech therapy is recommended to continue for mild to moderate pragmatic deficits. - Recommendations MBS: Yes - Frequency Frequency: 1x/Week Duration: 3 Months Visits in this POC: 12 - Prognosis Prognosis: Good - Goal #1-5 Goal #1: Cade will identify meaning of non literal language including but not limited to idioms, metaphors, inferences and exaggeration on 4/5 trials on 3 consecutive sessions. Goal #2: Cade will ask a question to find information about conversational partner in order to continue a conversation 3 times during a session across 3 consecutive sessions.
== END 2019-01-06 19:00 | disposition home or self-care (01) ==
LOC: SP 13:30
PROVIDERS: Family Provider Family Medicine; PCP Family Medicine
DX: R41.841 Cognitive communication deficit (principal); Z87.820 Personal history of traumatic brain injury
CPT/HCPCS: 92507

== ENCOUNTER 2019-07-09 12:00 | Outpatient (RCR) | payer OTHER, SELFPAY ==
[2018-09-22 16:42] VITALS: BMI 35.4
--- NOTE | 2019-03-15 13:29 | HP.SP.ADRE ---
Previous/Current Goals - Goals 1-5 Previous Goal #1: Cade will identify meaning of non literal language including but not limited to idioms, metaphors, inferences and exaggeration on 4/5 trials on 3 consecutive sessions. Goal 1 Status: Previous reporting period: Idioms ranged from 50-70%. Currently: Non literal language including exaggerations, inferences: 80%. Goal is progressing. Previous Goal #2: Cade will ask a question to find information about conversational partner in order to continue a conversation 3 times during a session across 3 consecutive sessions. Goal 2 Status: Previous reporting period: Cade asked 0-2 questions with maximal cues per session. Currently: Ranges from no questions asked in 15 minutes to when given initial cue to remind him to ask questions then asked 6 questions during general conversation. History - History Date of Eval: 07/28/17 Previous speech therapy: Yes Smoking Status: Former smoker Hx Smoking: Yes - remote Hx Tobacco Use: No - Pain Is pain an issue with your current prescribed condition?: No Patient Allergies - Allergies Allergies acetaminophen [From Percocet] Adverse Reaction (Verified 09/22/18 16:24) Other oxycodone [From Percocet] Adverse Reaction (Verified 09/22/18 16:24) Other SCATBI - SCATBI SCATBI Administered: Yes SCATBI: The Scales of Cognitive Ability for Traumatic Brain Injury tests cognitive abilities in five subtests: perception and discrimination, orientation, organization, recall and reasoning. The lower functioning composite score is the sum of the standard scores for perception and discrimination, orientation and organization, and the higher functioning composite is the sum of the standard scores for recall and reasoning. The SCATBI total score is the sum of all five standard scores. The standard score is a mean of 100 with a standard deviation of 15. A score of 85 or better is considered within normal limits. Date: 03/15/19 - Orientation Standard Score: 88 - Organization Standard Score: 95 - Reasoning Standard Score: 100 - SCATBI Comments Comments Cade has shown improvement on all three subtests given. His reasoning skills are improving well. He continues to show deficits in pragmatic language skills. Other Impressions - Comments Pragmatic Language -: Cade has shown great progress in his social language skills during the course of treatment. Recently there have been areas where he has demonstrated that he continues to have deficits. He often will compliment women/children multiple times and presents with ability to tell when it is no longer appropriate or when to stop complimenting. During conversation he often talks of the same topic with excessive details ( often repeated multiple times) and demonstrates inability to tell when topic should end or change to a new one. Plan - Plan Plan: Speech therapy is recommended to continue as Cade continues to progress with his cognitive skills. He continues to exhibit deficits in pragmatic language skills. - Recommendations Treatment Warranted: Yes - Frequency Visits in this POC: 12 - Prognosis Prognosis: Good - Goals that are Established: Determination:: Goals will be added/modified as deemed necessary and appropriate. Therapy will be discontinued when results of re-evaluation indicate therapy is no longer needed or lack of progress has been documented. - Goal #1-5 Goal #1: Cade will identify meaning of non literal language including but not limited to idioms, metaphors, inferences and exaggeration on 4/5 trials on 3 consecutive sessions. Goal #2: Cade will ask a question to find information about conversational partner in order to continue a conversation 3 times during a session across 3 consecutive sessions. Goal #3: Cade will complete a topic of conversation without repeating statements more than 2 times and appropriately end a topic on 4/5 trials on 3 consecutive sessions.
--- NOTE | 2019-07-12 14:37 | HP.SP.ADRE_ITS ---
Previous/Current Goals - Goals 1-5 Previous Goal #1: Cade will identify meaning of non literal language including but not limited to idioms, metaphors, inferences and exaggeration on 4/5 trials on 3 consecutive sessions. Goal 1 Status: This goal was addressed minimally in favor of pragmatic goals. He was able to explain idioms, proverbs and analogies during testing. Previous Goal #2: Cade will ask a question to find information about conversational partner in order to continue a conversation 3 times during a session across 3 consecutive sessions. Goal 2 Status: Since last reporting period Cade has changed from asking no questions independently and needed maximal cues to ask any question during sessions to ranging from no questions asked to up to 7 with only one cue. Overall, he still needs cues to ask questions to keep a conversation going to find out information but will independently ask how are you. Cade dominates the conversation majority of the time. Previous Goal #3: Cade will complete a topic of conversation without repeating statements more than 2 times and appropriately end a topic on 4/5 trials on 3 consecutive sessions. Goal 3 Status: Cade varies greatly in his repetition of statements. Some days he does not repeat at all and others he will repeat statements up to 3 times. He still perseverates on statements regarding his accident and deficits of his left eye since then. He will continue to retell stories of his accident even after cued that it has been previously discussed. Overall in a 30 minute session he repeats no more than 2-3 statements and at times nothing is repeated. History - History Date of Eval: 07/28/17 Previous speech therapy: Yes Smoking Status: Former smoker Hx Smoking: Yes - remote Hx Tobacco Use: No - Pain Is pain an issue with your current prescribed condition?: No Patient Allergies - Allergies Allergies acetaminophen [From Percocet] Adverse Reaction (Verified 09/22/18 16:24) Other oxycodone [From Percocet] Adverse Reaction (Verified 09/22/18 16:24) Other SCATBI - SCATBI SCATBI Administered: Yes SCATBI: The Scales of Cognitive Ability for Traumatic Brain Injury tests cognitive abilities in five subtests: perception and discrimination, orientation, organization, recall and reasoning. The lower functioning composite score is the sum of the standard scores for perception and discrimination, orientation and organization, and the higher functioning com posite is the sum of the standard scores for recall and reasoning. The SCATBI total score is the sum of all five standard scores. The standard score is a mean of 100 with a standard deviation of 15. A score of 85 or better is considered within normal limits. Date: 07/12/19 - Orientation Standard Score: 88 - Organization Standard Score: 91 - Recall Standard Score: 95 - Reasoning Standard Score: 89 - SCATBI Comments Comments Cade was able to recall information when provided in isolated pieces. He had difficulty when items to recall were in discourse as when given too much informa tion Cade has a hard time determining important information to recall. Information given in paragraph form for him to recall was his most difficult task. SCATBI Re-Eval - Testing Results SCATBI Test Comparison: Previous standard scores were as follows: organization - 95 ( decrease), Recall 89 ( increase), and reasoning 100 (decrease) Other Impressions - Comments Pragmatic Language -: Cade has shown great progress in his social language skills during the course of treatment. Recently there have been areas where he has demonstrated that he continues to have deficits. He often will compliment women/children multiple times and presents with ability to tell when it is no longer appropriate or when to stop complimenting. During conversation he often talks of the same topic with excessive details ( often repeated multiple times) and demonstrates inability to tell when topic should end or change to a new one. Plan - Plan Plan: Speech therapy is warranted for continued deficits in pragmatic language and social skills. - Recommendations Treatment Warranted: Yes - Frequency Frequency: 1x/Week Duration: 12 weeks Visits in this POC: 12 - Prognosis Prognosis: Fair - Goals that are Established: Determination:: Goals will be added/modified as deemed necessary and appropriate. Therapy will be discontinued when results of re-evaluation indicate therapy is no longer needed or lack of progress has been documented. - Goal #1-5 Goal #1: Cade will use turn taking for 5 turns per conversation of at least 5 minutes on 4/5 trials on 3 consecutive sessions. Goal #2: Cade will appropriate topic maintenance of preferred and non preferred topics on 4/5 trials on 3 consecutive sessions.
== END 2019-07-09 17:00 | disposition home or self-care (01) ==
LOC: SP 12:00
PROVIDERS: Family Provider Family Medicine; PCP Family Medicine
DX: R41.841 Cognitive communication deficit (principal); Z87.820 Personal history of traumatic brain injury
CPT/HCPCS: 92507

== ENCOUNTER 2019-07-29 13:36 | Emergency (ER) | payer MEDICARE, MEDICAID, SELFPAY ==
[2018-09-22 16:42] VITALS: BMI 35.4
[2019-07-29 13:36] VITALS: BP 152/83; PULSE 63; RESP 18; TEMP 36.8; O2SAT 96; BMI 43.7
--- NOTE | 2019-07-29 13:53 | RAD_ITS ---
STUDY: X-RAY CHEST REASON FOR EXAM: Male, 54 years old. Cough and dyspnea. TECHNIQUE: PA and lateral views of the chest. COMPARISON: Comparison is made with prior study dated September 02, 2018. FINDINGS: The lungs are clear and expanded. Scattered calcified granulomas. There is no demonstrated pleural abnormality. Normal size heart. Normal mediastinum and omar. Normal visualized pulmonary arteries. Normal visualized aortic arch and descending thoracic aorta. There are mild degenerative changes of the visualized thoracic spine. Normal visualized ribs, clavicles, and shoulders. Embolization coils are seen in the region of the splenic artery. RAD/Chest PA and Lateral IMPRESSION: No acute abnormality is seen. Electronically Signed: Arturo Brewster, at 15:37 EDT , Service support ,
--- NOTE | 2019-07-29 13:53 | EKG12_ITS ---
Test Reason : GEN ILLNESS Blood Pressure : / mmHG Vent. Rate : 057 BPM Atrial Rate : 057 BPM P-R Int : 170 ms QRS Dur : 082 ms QT Int : 400 ms P-R-T Axes : 026 019 073 degrees QTc Int : 389 ms Sinus bradycardia Nonspecific ST abnormality Abnormal ECG Confirmed by MICHELLE MELENDEZ, JONATAN ([id number]), production editor BETO WELLER ([id number]) on 08/04/2019 10:55:09 AM Referred By: BRAD Confirmed By:KARINA MARTINEZ MD
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
[2019-07-29 15:17] LABS: Hematocrit 45.9 % (40-54); Hemoglobin 15.1 g/dL (13.0-16.5); Mean Corp Hgb Conc 32.9 g/dL (32-36); Mean Corpuscular Hgb 31.5 pg (27.0-32.0); Mean Corpuscular Volume 95.6 fL (80-94); Mean Platelet Vol. 10.6 fl (6.2-12.0); Platelet Count 194 K/mm3 (150-450); RBC Distribution Width CV 12.6 % (11.6-14.6); White Blood Count 6.3 K/mm3 (4.4-11.0)
[2019-07-29 15:33] LABS: Anion Gap 4 (5-15); BUN 21 mg/dL (7-18); BUN/Creat Ratio 22.5 RATIO (10-20); Calcium,Total 9.2 mg/dL (8.5-10.1); Chloride 105 mmol/L (98-107); Creatinine, Serum 0.93 mg/dL (0.70-1.30); EST Glomerular Filtration Rate 90 mL/min (>60); Est Glom Filt Rate - Afr Amer 108 mL/min (>60); Glucose 90 mg/dL (74-106); Potassium 4.5 mmol/L (3.5-5.1); Sodium Level 137 mmol/L (136-145)
== END 2019-07-29 16:03 | disposition home or self-care (01) ==
PROVIDERS: Emergency Provider Emergency Medicine; Family Provider Family Medicine; PCP Family Medicine
DX: R09.82 Postnasal drip (principal); R06.00 Dyspnea, unspecified; G47.33 Obstructive sleep apnea (adult) (pediatric); E66.9 Obesity, unspecified; Z87.820 Personal history of traumatic brain injury; Z87.891 Personal history of nicotine dependence
CPT/HCPCS: 71046; 80048; 84484; 85027; 93005; 99282; A4216

== ENCOUNTER 2020-10-07 12:31 | Emergency (ER) | payer OTHER, MEDICARE, MEDICAID, SELFPAY ==
[2020-10-07 12:32] VITALS: BP 131/76; PULSE 60; RESP 20; TEMP 36.1; O2SAT 99; BMI 43.5
--- NOTE | 2020-10-07 13:07 | EKG12_ITS ---
Test Reason : Blood Pressure : / mmHG Vent. Rate : 052 BPM Atrial Rate : 052 BPM P-R Int : 180 ms QRS Dur : 086 ms QT Int : 402 ms P-R-T Axes : 050 035 086 degrees QTc Int : 373 ms Sinus bradycardia Nonspecific ST and T wave abnormality Abnormal ECG Confirmed by MICHELLE MELENDEZ, JONATAN ([id number]), restaurant expeditor BETO WELLER ([id number]) on 10/12/2020 10:12:12 AM Referred By: HECTOR Confirmed By:KARINA MARTINEZ MD
--- NOTE | 2020-10-07 13:07 | RAD_ITS ---
STUDY: X-RAY CHEST REASON FOR EXAM: Male, 55 years old. CONFUSION, HX TBI TECHNIQUE: Single AP portable view of the chest. COMPARISON: 07/29/2019 FINDINGS: The lungs are clear and expanded. There is no demonstrated pleural abnormality. Normal size heart. Normal mediastinum and omar. Normal visualized pulmonary arteries. Normal visualized aortic arch and descending thoracic aorta. Normal visualized thoracic spine. Normal visualized ribs, clavicles, and shoulders. There is no demonstrated abnormality of the visualized soft tissue structures of the upper abdomen. RAD/Chest 1 View (Portable) IMPRESSION: Normal x-ray examination of the chest. Electronically Signed: Jose Bell DO at 15:24 EST Tel , Service support ,
[2020-10-07 13:40] LABS: Bacteria 0 SEEN /hpf (None Seen); Mucous, Urine 0 SEEN /hpf (<or=2+); Squamous Epithelial Cells - UA 0 SEEN /hpf (0-5)
[2020-10-07 13:50] LABS: Absolute Lymphocyte Count 1.91 X10^3/uL (0.83-4.51); Absolute Neutrophil Count 3.7 X10^3/uL (2.0-7.7); Basophil# 0.04 X10^3/uL; Basophil% 0.6 % (0-1); Eosinophil# 0.19 X10^3/uL; Hematocrit 48.7 % (40-54); Hemoglobin 16.1 g/dL (13.0-16.5); Lymphocyte # 1.91 X10^3/ul (4.0); Lymphocyte % 30.4 % (19-41); Mean Corp Hgb Conc 33.1 g/dL (32-36); Mean Corpuscular Hgb 31.8 pg (27.0-32.0); Mean Corpuscular Volume 96.1 fL (80-94); Mean Platelet Vol. 10.6 fl (6.2-12.0); Monocyte# 0.48 X10^3/uL; Monocyte% 7.6 % (0-10); NRBC Flagged by Analyzer 0 % (0-5); Neutrophil # 3.65 X10^3/uL (2.7-7.7); Neutrophil % 58.1 % (47-70); Platelet Count 228 K/mm3 (150-450); RBC Distribution Width CV 12.5 % (11.6-14.6); RBC Distribution Width SD 44.2 fl (35.1-43.9); Red Blood Count 5.07 M/mm3 (4.6-6.2); White Blood Count 6.3 K/mm3 (4.4-11.0)
--- NOTE | 2020-10-07 13:57 | ED.DCSUM_ITS ---
History of Present Illness Informant: Patient, Family <Lou Wallace - Last Filed: 10/07/20 13:57> Informant: Patient, Family Onset: Yesterday Context: Gradual Onset Timing: Continuous Quality: weakness Location: gradual Current Severity: Severe Maximum Severity: Severe Worsened by: movement Relieved by: rest Associated Symptoms: diarrhea Prior similar symptoms: No Recent Illness/Hospitalization: No <Ernesto Wallace - Last Filed: 10/07/20 15:18> Chief Complaint: Diarrhea Past Medical History Surgical History: herniorrhaphy, - - Fracture of left tibia and fibula, back surgery for spinal stenosis interval an umbilical hernia repair. carrie filter placement,skin graft on ankle,carotid endarterectemy, left ear trauma. several skull fractures and bleed. Smoking Status: Never smoker - Family History Maternal Family History: Family History (Last Updated 09/22/18 @ 16:34 by Chana Bernstein) Other Diabetes Heart disease Hypertension Family History: Reports: Unknown Paternal Family History: Family History (Last Updated 09/22/18 @ 16:34 by Chana Bernstein) Other Diabetes Heart disease Hypertension Family History: Reports: Unknown <Lou Wallace - Last Filed: 10/07/20 13:57> Prior records reviewed: Yes Past Medical History: - - TBI - Family History Maternal Family History: Family History (Last Updated 09/22/18 @ 16:34 by Chana Bernstein) Other Diabetes Heart disease Hypertension Paternal Family History: Family History (Last Updated 09/22/18 @ 16:34 by Chana Bernstein) Other Diabetes Heart disease Hypertension <Ernesto Wallace - Last Filed: 10/07/20 15:18> - Allergies and Home Meds Allergies/Adverse Reactions: Allergies acetaminophen [From Percocet] Adverse Reaction (Verified 07/29/19 13:39) Other oxycodone [From Percocet] Adverse Reaction (Verified 07/29/19 13:39) Other Primary Care Physician: Tate Broderick MD [Primary Care Provider] - Review of Systems All systems negative except as indicated General: Denies: Chills, Fever, Sweats Eyes: Denies: Visual changes - bilaterally, Diplopia ENT: Denies: Rhinorrhea, Sore throat Cardiovascular: Denies: Chest pain, Palpitations Respiratory: Reports: Cough. Denies: Dyspnea, Sputum, Dyspnea on exertion, Orthopnea, Paroxysmal nocturnal dyspnea Gastrointestinal: Reports: Diarrhea. Denies: Abdominal pain, Nausea, Vomiting, Constipation, Melena, Hematochezia Genitourinary: Denies: Dysuria, Hematuria, Frequency Musculoskeletal: Denies: Back pain, Extremity Pain Skin: Denies: Rash, Wounds Neurological: Denies: Headache, Weakness, Numbness <Ernesto Wallace - Last Filed: 10/07/20 15:18> Physical Exam Vital Signs/Narrative: Vital Signs Temp Pulse Resp BP Pulse Ox 10/07/20 12:32 97.0 F L 60 20 H 131/76 H 99 <Lou Wallace - Last Filed: 10/07/20 13:57> Vital Signs/Narrative: Vital Signs Temp Pulse Resp BP Pulse Ox 10/07/20 12:32 97.0 F L 60 20 H 131/76 H 99 Inital Vital Signs reviewed: Yes General: Well nourished, Well developed, No Acute Distress Head: Normocephalic, Atraumatic Eyes: Perrl, EOMI ENT: Moist mucous membranes, No rhinorrhea Neck: Supple, Nontender Cardiovascular: Regular rate, Regular rhythm, No murmurs Respiratory: No distress, CTA bilaterally, Chest nontender Abdomen: Soft, Nontender, Nondistended, Normal bowel sounds Back: Nontender, Normal Inspection Extremities: Nontender, No edema Skin: Normal color, No rash Neurological: Alert, Oriented x3, Cranial nerves II-XII grossly intact, Normal Strength, Normal Sensation Psychological: Normal affect, Normal Mood <Ernesto Wallace Last Filed: 10/07/20 15:18> Diagnostic/Tx/Re-eval - Medical Decision Making Patient was seen with Ernesto malcolm with history and physical exam as above patient's complains of diarrhea and generalized fatigue some behavioral disorder history of prior traumatic brain [facility] of diarrhea is copious and watery he is able to take liquids no fever no pain no tainted food no antibiotics history of C. difficile his vital signs are unremarkable resting company bed abdomen soft nontender mental status is at baseline please see the full chart for management results and disposition <Lou Wallace - Last Filed: 10/07/20 13:57> Chest X-Ray - ED: 1 View, Read by ED Physician, No Acute Disease 10/07/20 13:07 Chest 1 View (Portable) [RAD] Stat 10/07/20 13:30 Mucosa - Nose SARS-CoV-2 Antigen (Rapid) - Final Laboratory Results 10/07/20 10/07/20 10/07/20 13:25 13:25 13:25 WBC 6.3 RBC 5.07 Hgb 16.1 Hct 48.7 MCV 96.1 H MCH 31.8 MCHC 33.1 RDW Std Deviation 44.2 H RDW Coeff of Lex 12.5 Plt Count 228 MPV 10.6 Immature Gran % (Auto) 0.300 Neut % (Auto) 58.1 Lymph % (Auto) 30.4 Riley % (Auto) 7.6 Eos % (Auto) 3.0 Baso % (Auto) 0.6 Absolute Neuts (auto) 3.7 Absolute Lymphs (auto) 1.91 Nucleated RBC % 0 Sodium 141 Potassium 3.9 Chloride 107 Carbon Dioxide 30.0 Anion Gap 4 L BUN 18 Creatinine 1.02 Estim Creat Clear Calc 81.83 Est GFR (MDRD) Af Amer 97 Est GFR (MDRD) Non-Af 81 BUN/Creatinine Ratio 17.6 Glucose 93 Calcium 9.1 Total Bilirubin 0.40 AST 19 ALT 52 Alkaline Phosphatase 146 H Total Protein 7.4 Albumin 4.0 Globulin 3.4 Albumin/Globulin Ratio 1.2 Lipase 231 Urine Color Yellow Urine Clarity Clear Urine pH 5.0 Ur Specific [place] 1.025 Urine Protein 30 H Urine Glucose (UA) Normal Urine Ketones Negative Urine Occult Blood 10 H Urine Nitrite Negative Urine Bilirubin Negative Urine Urobilinogen Normal Ur Leukocyte Esterase 25 H Urine RBC 0-5 SEEN Urine WBC 0-5 SEEN Ur Squamous Epith Cells 0 SEEN Urine Bacteria 0 SEEN Urine Mucus 0 SEEN - Medical Decision Making Patient was hydrated with a liter of fluids. He was unable to give us a stool sample so he will give 1 at home. he will be discharged home. [facility]. Return precautions given. <Ernesto Wallace - Last Filed: 10/07/20 15:18> ED Disposition <Lou Wallace - Last Filed: 10/07/20 13:57> <Ernesto Wallace - Last Filed: 10/07/20 15:18> - Plan for ED Patient: Disposition: Home or Assisted Living Diagnosis: Traumatic brain injury, Diarrhea Instructions: ED Diarrhea, Unknown Cause Referrals: Tate Broderick MD [Primary Care Provider] -
[2020-10-07 13:59] LABS: Color, Urine Yellow (Yellow); Glucose, Dipstick Normal (Normal); Ketone-Dipstick Negative (Negative); Leukocyte Esterase-Dipstick 25 /ul (Negative); Nitrite-Dipstick Negative (Negative); Occult Blood-Urine 10 /ul (Negative); Protein-Dipstick 30 mg/dl (Negative); Specific Gravity, Urine 1.025 (1.002-1.030); Urine Bilirubin Dipstick Negative (Negative); Urine Clarity Clear (Clear); Urine Urobilinogen Normal (Normal)
[2020-10-07 14:00] LABS: Red Blood Cells-Urine 0-5 SEEN /hpf (0-5); White Blood Cells 0-5 SEEN /hpf (0-5)
[2020-10-07 14:13] LABS: ALB/GLOB Ratio 1.2 RATIO (0.9-2.4); AST(SGOT) 19 U/L (15-37); Alanine Aminotransfer ALT/SGPT 52 U/L (16-61); Alkaline Phosphatase 146 U/L (45-117); Anion Gap 4 (5-15); BUN 18 mg/dL (7-18); BUN/Creat Ratio 17.6 RATIO (10-20); Calcium,Total 9.1 mg/dL (8.5-10.1); Chloride 107 mmol/L (98-107); Creatinine, Serum 1.02 mg/dL (0.70-1.30); EST Glomerular Filtration Rate 81 mL/min (>60); Est Glom Filt Rate - Afr Amer 97 mL/min (>60); Estimated Creatinine Clearance 81.83 ml/min; Globulin 3.4 g/dL (2.2-4.2); Glucose 93 mg/dL (74-106); Lipase 231 U/L (73-393); Potassium 3.9 mmol/L (3.5-5.1); Protein, Total 7.4 g/dL (6.4-8.2); Sodium Level 141 mmol/L (136-145)
[2020-10-07 15:39] VITALS: BP 125/84; PULSE 53; RESP 16; O2SAT 95
== END 2020-10-07 15:42 | disposition home or self-care (01) ==
PROVIDERS: Emergency Provider Physician Assistant Medical; PCP Family Medicine
DX: R19.7 Diarrhea, unspecified (principal); Z87.820 Personal history of traumatic brain injury
CPT/HCPCS: 71045; 80053; 81001; 83690; 85025; 87426; 93005; 99283; J7030; A4216

== ENCOUNTER 2020-11-10 13:00 | Outpatient (RCR) | payer OTHER, MEDICARE, MEDICAID, SELFPAY ==
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
--- NOTE | 2021-01-09 13:57 | HP.SP.DC_ITS ---
ST Discharge Summary - Discharged: Discharge: Cade Rodriguez is discharged as of January 09, 2021 from [facility]. He was evaluated on 08/21/20 for cognitive deficits and pragmatic deficits following a TBI. He was treated for 5 sessions out of 9 scheduled as he no showed 4 sessions. His last session was on 11/10/20 with no further visits were scheduled after that session. His reported that he was being referred to [facility] in [facility]. Interventions targeting his persistent cognitive communication based deficits through training and implementation of base level metacognitive strategy training, use of social communication interventions designed to improve functional conversational skills, with a focus on a ?Theory of Mind? approach to understanding other peoples' beliefs, attitudes, and emotions and using that understanding to navigate social situations, along with an errorless learning approach to treatment, which has shown efficacy in this particular population. Also introduced to the STOPP approach with use of a vi sual descriptive behavioral chart. Please see daily noted from treatment for full details. A copy of this discharge summary will be sent to his referring physician.
== END 2020-11-10 19:00 | disposition home or self-care (01) ==
LOC: SP 13:00
PROVIDERS: PCP Family Medicine
DX: R41.841 Cognitive communication deficit (principal)
CPT/HCPCS: 92507; 92523